=== PATIENT | female | born 1960 | race Caucasian/White ===

== ENCOUNTER 2017-06-13 14:56 | Inpatient (IN) | payer SELFPAY ==
[2017-06-13] MEDS ORDERED: Sodium Chloride 77 MEQ, Potassium Chloride 20 MEQ in Dextrose 10% in Water 1,000 ML IV SCH ×3 (16:00)
--- NOTE | 2017-06-13 16:27 | CT ---
EXAM: NONCONTRAST HEAD CT 06/13/17 HISTORY: Hypoglycemia. Diabetes patient. Unresponsive. Altered mental status. COMPARISON: None. TECHNIQUE: Noncontrast head CT is performed from skull base to skull vertex. FINDINGS: No parenchymal hemorrhage or extra-axial hematoma. No midline shift. Basilar cisterns are patent. Ag e appropriate atrophy. Cortical mancera-white matter differentiation is preserved. Ventricles and sulci are patent and symmetric. Periventricular white matter hypodensities are due to chronic small vessel ischemic changes are note d. Intact calvarium. Adequate aeration of the sinuses and mastoid air cells. IMPRESSION: 1. No acute intracranial process. 2. Chronic small vessel ischemic changes of the white matter. POS: JESUS
[2017-06-13 16:48] LABS: Bilirubin Negative (Negative); Blood, Urine Negative (Negative); Glucose, Urine (Dipstick) Negative (Negative); Ketone, Urine Negative (Negative); Nitrite Negative (Negative); Protein, Urine (Dipstick) Negative (Neg-Trace); Urobilinogen 0.2 mg/dL (0.2-1.0)
[2017-06-13 16:55] LABS: #Lymphocytes 1.2 thou/uL (1.20-3.40); #Monocytes 0.4 thou/uL (0.11-0.59); #Neutrophils 4.7 thou/uL (1.40-6.50); %Basophils 0.2 % (0.0-1.0); %Eosinophils 0.3 % (0.0-10.0); %Lymphocytes 18.7 % (21.0-51.0); Hematocrit 32.6 % (36.0-47.0); Mean Platelet Volume 6.3 fL (7.4-10.4); Red Blood Cell (RBC) Count 3.52 mill/uL (4.20-5.40); White Blood Cell (WBC) Count 6.2 thou/uL (4.8-10.8)
[2017-06-13 16:58] LABS: Amphetamine Not Detected (NotDetected); Methadone Not Detected (NotDetected); Methamphetamine Not Detected (NotDetected)
[2017-06-13 17:07] LABS: PTT 35.3 SEC (22.9-36.1); Prothrombin Time 14.4 SEC (12.0-14.7)
[2017-06-13 17:08] LABS: Acetaminophen Less than 6.0 mcg/mL (10.0-30.0); Salicylate Less than 8.0 mg/dL (15.0-30.0)
[2017-06-13 17:13] LABS: Troponin I Less than 0.010 ng/mL (< 0.028)
--- NOTE | 2017-06-13 17:16 | RAD ---
PORTABLE AP CHEST X-RAY: 06/13/2017 HISTORY: Altered mental status. COMPARISON: 06/23/2012 FINDINGS: The cardiac silhouette is magnified by projection but does appear mildly enlarged. The pulmonary va sculature is at the upper limits of normal. The lungs are clear. Vascular calcifications are seen in an ectatic thoracic aorta. There are degenerative changes seen in the spine. There is osteopeni a. IMPRESSION: Mild cardiomegaly with borderline increase in pulmonary vasculature. POS: ROXIE
[2017-06-13 17:17] LABS: ALT (SGPT) 16 U/L (8-55); AST (SGOT) 25 U/L (5-34); Alkaline Phosphatase 83 U/L (40-150); Anion Gap 12 mmol/L (10-20); BUN (Urea Nitrogen) 19 mg/dL (9.8-20.1); Bilirubin, Total 0.3 mg/dL (0.2-1.2); CK (CPK) 19 U/L (29-168); Calc. Creatinine Clearance 0 mL/min (70-130); Calcium 9.2 mg/dL (7.8-10.44); Carbon Dioxide 21 mmol/L (22-29); Chloride 106 mmol/L (98-107); Estimated GFR-MDRD 86; Globulin 4.6 g/dL (2.4-3.5); Lipase 7 U/L (8-78); Protein, Total 7.6 g/dL (6.0-8.3)
[2017-06-13] MEDS ORDERED: Ondansetron ODT 4 MG TAB SL PRN (20:42)
[2017-06-13] MEDS ORDERED: Ondansetron HCl/PF 4 MG/2 ML Vial IVP PRN (20:42)
[2017-06-13] MEDS ORDERED: Sodium Chloride 77 MEQ in Dextrose 10% in Water 1,000 ML IV SCH ×2 (20:45)
[2017-06-13] MEDS ORDERED: Dextrose 50% Abboject 50 ML SYRINGE SLOW IVP PRN (20:52)
[2017-06-13] MEDS ORDERED: HumaLOG 300 UNITS/3 ML VIAL SC PRN (20:52)
[2017-06-13] MEDS ORDERED: Dextrose 5% in Water 1,000 ML IV PRN (20:52)
[2017-06-13] MEDS ORDERED: Acetaminophen 325 MG TAB PO PRN (20:52)
[2017-06-13 21:00] VITALS: BMI 35.2
[2017-06-13 21:29] LABS: Hemoglobin A1c 5.7 % (4.0-6.0)
--- NOTE | 2017-06-13 22:36 | HP-2 ---
CODE STATUS: FULL. ATTENDING PHYSICIAN: Neal Lockett M.D. RESIDENT: Chapo Caruso MD HISTORIAN: The patient is unreliable historian, very inconsistent with the story. CHIEF COMPLAINT: Altered mental status. HISTORY OF PRESENT ILLNESS: Lala Nguyen is a 56-year-old female with past medical history of CHF , type 2 diabetes, and hypertension, who presents with altered mental status. The patient is a poor historian with a very inconsistent story. She states that she was with her family when she became unresponsive around. Actually she states that the last thing that she remembers today was feeding h er grandchildren this morning. She says no other adults are in the house just turned her grandchild aleksander and the next thing that she remembers is waking up in the ER. She was told that she had a reall y low blood sugar. ER report was less than 20 per the EMS. She denies any confusion, any postictal state, chest pain, vision changes, headache, palpitations, and incontinence. She states that she h as not taken her insulin or her pain or anxiety medications in over a month because she has not had the money to get them refilled. She also states that she takes metformin at home. She lives with o ne of her children and her children were not in the room during this interview. The patient does st ate that she had some blurry vision this morning. She also states that over the last couple days alvin epps has had stuttering of her speech and this has never been a problem for her before. In the ER, the patient received a D10 half normal saline with 20 mEq of KCl at 120 mL an hour. PAST MEDICAL HISTORY: CHF, type 2 diabetes, history of stroke, and hypertension. PAST SURGICAL HISTORY: Hysterectomy. ALLERGIES: CODEINE. MEDICATIONS: This is per the ER report who got this medication list from the daughter. 1. Metformin. 2. Apidra. 3. Tanzeum. FAMILY HISTORY: Noncontributory. SOCIAL HISTORY: Half pack per day smoker. Denies alcohol or drug use. She is a who lives wi th one of her children and takes care of her grandchildren. REVIEW OF SYSTEMS: GENERAL: Denies fevers, chills, weight, appetite, sleep changes, night sweats, or fatigue. EYES: Blurry vision this morning. Denies eye pain. ENT: Positive for nasal congestion, rhinorrhea, or sore throat. RESPIRATORY: Positive for shortness of breath. Denies cough, congestion, or exercise intolerance. CARDIOVASCULAR: Denies chest pain, palpitations, edema, PND, or orthopnea. GASTROINTESTINAL: Denies nausea, vomiting, diarrhea, constipation, abdominal pain, or GI bleeding. GENITOURINARY: Positive for polyuria which is a chronic problem for her, and denies incontinence, d ysuria, or discharge. SKIN: Denies rashes, lesions, jaundice, or itching. MUSCULOSKELETAL: Denies pain, tenderness, arthralgia, stiffness, swelling or arthritis. NEUROLOGIC: Positive for syncope. Denies weakness, seizures, or numbness. Does state that she hickman s had falls more recently over the last month. PSYCHIATRIC: Positive for anxiety and depression, controlled with medication she states. PHYSICAL EXAMINATION: VITAL SIGNS: Blood pressure 106/66, pulse 53, respiratory rate 16, her temperature 93.7, pulse ox 9 7 on room air. Current weight 113 kilograms. GENERAL: The patient is alert and oriented x4, in no acute distress, morbidly obese, and occasional ly slurring her words and stuttering, but appropriately interactive. HEENT: Pupils equal, round, react to light and accommodation. Extraocular muscles are intact. Con junctivae within normal limits. ENT: Tympanic membranes pearly mancera without erythema or bulging. Nasal mucosa and oropharynx withi n normal limits. NECK: Supple, without lymphadenopathy or thyromegaly. CARDIOVASCULAR: Regular rate and rhythm. No murmurs or gallops. Radial pulses and pedal pulses pr esent and equal bilaterally. RESPIRATORY: Normal effort, no retractions. Clear to auscultation bilaterally. SKIN: Warm and dry without cyanosis or lesions. ABDOMEN: Soft and protuberant, no tenderness to palpation. Bowel sounds x4. No masses or distenti on. EXTREMITIES: No clubbing, cyanosis or edema. MUSCULOSKELETAL: Structure and tone within normal limits. Muscle strength 5/5 in both upper extrem ities and lower extremities bilaterally. Full range of motion. [employer] Assistant Principal strength equal bilaterally 5/5 . NEUROLOGICAL: No focal deficits. Sensation within normal limits. Cranial nerves II-XII intact. PSYCHIATRIC: Appropriate. LABORATORY DATA: White blood cell count 6.2, hemoglobin 10.7, hematocrit 32.6, MCV 92.7, and platel ets 171. Sodium 135, potassium 4.0, chloride 106, bicarbonate 21, BUN 19, creatinine 0.71, glucose 86, calcium 9.2, total protein 7.6, albumin 3.0, AST 25, ALT 16, alkaline phosphatase 83, total bili rod 0.3. INR 1.1, PT 14.4, PTT 35.3. Ammonia 39, CK 19, CK-MB 0.8, troponin less than 0.01, lipa se 7, BNP 31, TSH 1.1798. UA negative. UDS positive for opiates and TCA less than 6, acetaminophen less than 10, alcohol less than 8 salicylate. IMAGING DATA: EKG showed sinus bradycardia with first degree AV block. Chest x-ray showed mild car diomegaly with borderline increased pulmonary vasculature. CT of the head, no acute intracranial pr ocess, but chronic small vessel ischemic changes. ASSESSMENT AND PLAN: 1. Lala Nguyen is a 56-year-old female who presents with altered mental status after being found down with a blood sugar of less than 20. 2. Encephalopathy, likely secondary to hypoglycemia with a possible toxic component. UDS positive for TCA and opioids. The patient's daughter states she is on short-acting insulin and Apidra. It i s likely that the patient took too much insulin; however, she denies taking any insulin within the l ast month, but she is unreliable historian. We will check a hemoglobin A1c, Accu-Cheks q.2 h. initi ally, then a.c. and at bedtime after that, mild sliding scale insulin with hypoglycemia protocol att empt to retrieve medication list from family. Bedside swallow study. Admit to tele inpatient, morn ing BMP, CBC, mag and phos. Start metformin 500 mg b.i.d. 3. Possible substance abuse. Speak to family about medication use. The patient denies use of pain meds or anxiety meds in the last month. UDS positive for TCA and opioids. 4. Sinus bradycardia with first-degree AV block. Repeat EKG in the morning tele, continuous cardia c monitoring. 5. Hypertension. Monitor vitals, tele. 6. Type 2 diabetes mellitus, mild sliding scale insulin q.2 Accu-Cheks initially, a.c. and at bedti me after that. Continue home metformin and get home medication list. 7. Normocytic anemia. MCV of 92.7, hemoglobin of 10.7. Check B12 and folate. 8. Code status: FULL. 9. Diet: Consistent carbohydrates 1800 kilo calories. 10. Activity: Ambulate with assist and walking program. DISPOSITION LENGTH OF HOSPITAL STAY: Two days. Symptomatic medications will be provided. History and physical exam as well as management discussed with Dr. Lockett.
[2017-06-13] MEDS ORDERED: Melatonin 3 MG TAB PO PRN (22:40)
[2017-06-13] MEDS ORDERED: rOPINIRole HCl 0.25 MG TAB PO SCH (22:45)
[2017-06-14] MEDS ORDERED: Pramipexole Di-HCl 0.125 MG TAB PO SCH (01:00)
[2017-06-14 05:28] LABS: #Eosinphils 0.1 thou/uL (0.0-0.7); #Lymphocytes 1.9 thou/uL (1.20-3.40); #Monocytes 0.5 thou/uL (0.11-0.59); #Neutrophils 4.7 thou/uL (1.40-6.50); %Basophils 0.5 % (0.0-1.0); %Eosinophils 1.1 % (0.0-10.0); %Lymphocytes 26.6 % (21.0-51.0); %Monocytes 6.8 % (0.0-10.0); Mean Platelet Volume 6.9 fL (7.4-10.4); Red Blood Cell (RBC) Count 3.43 mill/uL (4.20-5.40); White Blood Cell (WBC) Count 7.2 thou/uL (4.8-10.8)
[2017-06-14 05:52] LABS: Anion Gap 10 mmol/L (10-20); BUN (Urea Nitrogen) 16 mg/dL (9.8-20.1); Calc. Creatinine Clearance 131 mL/min (70-130); Calcium 9.2 mg/dL (7.8-10.44); Carbon Dioxide 25 mmol/L (22-29); Chloride 103 mmol/L (98-107); Estimated GFR-MDRD 87
--- NOTE | 2017-06-14 07:41 | PDOC.FM ---
- Subjective Subjective: Patient reports that she is back at her baseline today. She was able to give me a little more history. She reports that she takes 20 Units every morning of some type of insulin (she did not know the name), and she took it as usual yesterday but then she does not remember eating at all yesterday. She is asymptomatic today with no complaints. - Objective MAR Reviewed: Yes Vital Signs & Weight: Vital Signs (12 hours) Temp Pulse Resp BP Pulse Ox 06/14/17 03:58 97.6 F 58 L 18 106/64 06/13/17 23:52 97.6 F 63 18 119/57 L 95 06/13/17 23:45 95 06/13/17 22:56 96 06/13/17 21:50 97.6 F 66 18 97 06/13/17 21:46 97.6 F 66 18 130/63 97 06/13/17 21:01 97.8 F 61 14 143/68 H 97 Weight Weight 90.22 kg Result Diagrams: 06/14/17 04:11 06/14/17 04:11 Phys Exam - Physical Examination Constitutional: NAD HEENT: moist MMs Respiratory: no wheezing, no rales, no rhonchi, clear to auscultation bilateral Cardiovascular: RRR, no significant murmur, no rub, gallop Gastrointestinal: soft, non-tender, positive bowel sounds Musculoskeletal: no edema, pulses present Neurological: non-focal, moves all 4 limbs Psychiatric: normal affect, A&O x 3 Dx/Plan (1) Encephalopathy acute Code(s): G93.40 - ENCEPHALOPATHY, UNSPECIFIED Status: Acute Plan: Patient was encephalopathic on admission likely 2/2 severe hypoglycemia per ER reports her glucose was less than 20 initially Patient improved s/p dextrose, now at baseline with normalized blood sugars -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 of eating after giving herself insulin -Get medication list from daughter (2) Hypoglycemia due to insulin Code(s): E16.0 - DRUG-INDUCED HYPOGLYCEMIA WITHOUT COMA; T38.3X5A - ADVERSE EFFECT OF INSULIN AND ORAL HYPOGLYCEMIC DRUGS, INIT Status: Acute Plan: Per ER reports her glucose was less than 20 initially Patient improved s/p dextrose, now at baseline with normalized blood sugars -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 She is asymptomatic from this -Continue to monitor on tele (5) Sinus bradycardia Code(s): R00.1 - BRADYCARDIA, UNSPECIFIED Status: Acute Plan: Patient had sinus bradycardia with 1st degree AV block, she has been told this in the past and does not have a insulator technician. She is asymptomatic from this -Continue to monitor on tele (6) Normocytic anemia Code(s): D64.9 - ANEMIA, UNSPECIFIED Status: Acute Plan: Patient has normocytic anemia, B12 and folate within normal limits This is likely anemia of chronic disease -will continue to monitor
[2017-06-14 16:13] VITALS: BP 112/55; TEMP 98.3
[2017-06-14] MEDS ORDERED: rOPINIRole HCl 0.25 MG TAB PO SCH (21:00)
--- NOTE | 2017-06-15 07:04 | ADD-HP ---
ADDENDUM Please see the note from Dr. Caruso for which I concur. The patient was seen, evaluated, and examine d and discussed with the residents by bedside. Basically, this is a 56-year-old, who was found to h ave hypoglycemia, severe. She was unable to give much history and so we are waiting on home medicat ions, but it does sound like that she is on home insulin and may be gave too much. Hemoglobin A1c i s really low and fell probably does not need insulin in the big picture. Past medical history, past surgical history, allergy history, medications, social history, and famil y history, all per the resident's history and physical form which I agree. PHYSICAL EXAMINATION: GENERAL: On exam, in no apparent distress, fairly normal affect, otherwise seems completely normal and appropriate. ENT: Normal. CHEST: Clear. CARDIOVASCULAR: Regular rhythm. ABDOMEN: Benign. NEUROLOGIC: Normal. LABORATORY DATA: Her sugar is back to normal. ASSESSMENT AND PLAN: 1. Hypoglycemia, likely dangerous treatment of her diabetes, on insulin, which probably does not ne ed it. 2. Altered mental status, now better. 3. Possible substance abuse. 4. Mild anemia. Plan would be to work up all these issues as an outpatient, but certainly would not put her on insul in, but she can go home, otherwise, now that her sugars are doing fine.
--- NOTE | 2017-06-16 01:18 | DIS-2 ---
DATE OF ADMISSION: 06/13/2017 DATE OF DISCHARGE: 06/14/2017 ADMITTING RESIDENT: Dr. Chapo Caruso DISCHARGE RESIDENT: Dr. Kacie Mukherjee ADMITTING ATTENDING: Dr. Neal Lockett DISCHARGE ATTENDING: Dr. Neal Lockett CONSULTATIONS: None. PROCEDURES: None. PRIMARY DIAGNOSES: 1. Acute encephalopathy. 2. Hypoglycemia due to insulin. 3. First-degree atrioventricular block. 4. Sinus bradycardia. SECONDARY DIAGNOSES: 1. Hypertension. 2. Type 2 diabetes. 3. Normocytic anemia. DISCHARGE MEDICATIONS: 1. Metformin 500 mg p.o. b.i.d. with meals. The patient did not know the rest of her medications a nd we were unable to get a hold of her medication list. DISCONTINUED MEDICATIONS: 1. Insulin. HISTORY OF PRESENT ILLNESS AND HOSPITAL COURSE: This is a 56-year-old female who presented to the [facility] because of altered mental status secondary to a glucose that was reported by EMS to be less than 2 0. The patient reports that she took her usual dose of insulin in the morning, but then never ate. The patient is unsure what insulin she was on whether it was short acting or long acting. After th e patient's blood sugar was elevated, her encephalopathy and altered mental status improved. She hickman d a head CT that showed no acute intracranial process just chronic small vessel ischemic changes of the white matter and a chest x-ray that showed mild cardiomegaly with borderline increase in pulmona ry vasculature. Her lab work showed a normocytic anemia with hemoglobin around 10.7 and she had opi ates and tricyclics detected on her UDS. After the patient's blood sugar had normalized and she was no longer encephalopathic. Also her hemoglobin A1c was 5.7. After normalized, we counseled the elaina cage to no longer take her insulin at all and to follow up with her primary care physician in [facility] to determine whether insulin is still necessary. If so, patient will need to be counseled f christy on proper insulin use, but for now the patient will be safe just being on metformin. DISPOSITION: Stable. DISCHARGE INSTRUCTIONS: 1. Location: Home. 2. Diet: Consistent carb. 3. Activity: As tolerated. 4. Follow up with PCP within 7 days.
== END 2017-06-14 18:45 | disposition home or self-care (01) | DRG 637 ==
LOC: ERS 14:56 → OBSVTOIN 20:39 → 2SW 20:39 → 2NO 21:49
PROVIDERS: ADMIT Family Medicine; ATTEND Family Medicine
DX: E11.649 Type 2 diabetes mellitus with hypoglycemia without coma (principal); G93.41 Metabolic encephalopathy; T38.3X5A Adverse effect of insulin and oral hypoglycemic [antidiabetic] drugs, initial encounter; R00.1 Bradycardia, unspecified; Z68.35 Body mass index [BMI] 35.0-35.9, adult; I44.0 Atrioventricular block, first degree; I11.0 Hypertensive heart disease with heart failure; Z86.73 Personal history of transient ischemic attack (TIA), and cerebral infarction without residual deficits; E03.9 Hypothyroidism, unspecified; R68.0 Hypothermia, not associated with low environmental temperature; E66.9 Obesity, unspecified; D63.8 Anemia in other chronic diseases classified elsewhere
CPT/HCPCS: 36415; 36416; 51701; 70450; 71010; 80048; 80053; 80306; 80307; 81003; 82140; 82550; 82553; 82607; 82746; 83036; 83690; 83735; 83880; 84100; 84443; 84484; 85025; 85610; 85730; 93005; 93010; 96360; 96361; A4353; J3480

== ENCOUNTER 2018-01-05 18:46 | Observation (INO) | payer OTHER, SELFPAY ==
--- NOTE | 2018-01-05 20:58 | ULT ---
RIGHT UPPER QUADRANT ULTRASOUND: INDICATIONS: Right upper quadrant pain for two weeks with nausea and vomiting. COMPARISON: Prior CT of the abdomen and pelvis, dated 01/05/2018 at 4:24 p.m. FINDINGS: There is a lobulated contour to the liver, suspicious for cirrhosis. There is gallbladder distention without intraluminal stones. There is prominence of the common bile duct, measuring up to 8 mm. No sonographic Dasilva sign is reported. The visualized aspects of the pancreas are unremarkable. The right kidney measures 11 cm in length. No focal renal lesion or hydronephrosis is evident. IMPRESSION: 1. Moderate to prominent distention of the gallbladder without evidence of intraluminal stones. The re is no overt ultrasound evidence to suggest the presence of acute cholecystitis. 2. Nonspecific prominence of the common bile duct. No lawrence intrahepatic biliary ductal dilatation is evident. MRCP may be helpful for further evaluation. 3. Cirrhotic morphology of the liver. POS: JESUS
[2018-01-05] MEDS ORDERED: Fentanyl 100 MCG/2 ML VIAL ONE (21:39)
[2018-01-05] MEDS ORDERED: Fentanyl 100 MCG/2 ML VIAL SLOW IVP PRN (23:32)
[2018-01-05] MEDS ORDERED: Ondansetron HCl/PF 4 MG/2 ML Vial IVP PRN (23:33)
[2018-01-05] MEDS ORDERED: Ondansetron ODT 4 MG TAB SL PRN (23:33)
[2018-01-05] MEDS ORDERED: Lactated Ringer's 1,000 ML IV SCH (23:45)
[2018-01-05 23:53] VITALS: BMI 30.1
[2018-01-06] MEDS ORDERED: HumaLOG 300 UNITS/3 ML VIAL SC PRN (00:36)
[2018-01-06] MEDS ORDERED: Dextrose 50% Abboject 50 ML SYRINGE SLOW IVP PRN (00:36)
[2018-01-06] MEDS ORDERED: HYDROcodone/Acetaminophen 5/325 mg Tablet PO PRN (00:36)
[2018-01-06] MEDS ORDERED: Ondansetron HCl/PF 4 MG/2 ML Vial IVP PRN (00:36)
[2018-01-06] MEDS ORDERED: Acetaminophen 325 MG TAB PO PRN (00:36)
[2018-01-06] MEDS ORDERED: Dextrose 5% in Water 1,000 ML IV PRN (00:36)
[2018-01-06] MEDS ORDERED: metroNIDAZOLE 500 MG in Premix Bag 1 BAG IVPB SCH (00:45)
[2018-01-06] MEDS: Sodium Chloride 0.9% 1,000 ML IV SCH ×3 (01:47→16:57)
[2018-01-06] MEDS: Morphine 4 MG/ML VIAL SLOW IVP PRN ×5 (01:49→20:36)
[2018-01-06 05:11] LABS: #Eosinphils 0.2 thou/uL (0.0-0.7); #Lymphocytes 1.7 thou/uL (1.20-3.40); #Monocytes 0.5 thou/uL (0.11-0.59); #Neutrophils 2.1 thou/uL (1.40-6.50); %Basophils 0.2 % (0.0-1.0); %Lymphocytes 37.2 % (21.0-51.0); %Monocytes 10.7 % (0.0-10.0); Hemoglobin 11.7 g/dL (12.0-16.0); Mean Corpuscular HGB CONC 33.9 g/dL (32.0-36.0); Mean Corpuscular Hemoglobin 30.7 pg (27.0-31.0); Mean Corpuscular Volume 90.5 fl (81.0-99.0); Mean Platelet Volume 6.4 fL (7.4-10.4); Platelet Count 155 thou/uL (130-400); RBC Distribution Width 12.7 % (11.5-14.5); Red Blood Cell (RBC) Count 3.82 mill/uL (4.20-5.40); White Blood Cell (WBC) Count 4.4 thou/uL (4.8-10.8)
[2018-01-06 05:15] LABS: Hemoglobin A1c 8.5 % (4.0-6.0)
[2018-01-06] MEDS: metroNIDAZOLE 500 MG in Premix Bag 1 BAG IVPB SCH ×4 (05:32→23:57)
[2018-01-06 05:45] LABS: ALT (SGPT) 11 U/L (8-55); AST (SGOT) 18 U/L (5-34); Albumin 3.1 g/dL (3.5-5.0); Alkaline Phosphatase 86 U/L (40-150); Anion Gap 10 mmol/L (10-20); BUN (Urea Nitrogen) 8 mg/dL (9.8-20.1); Bilirubin, Total 0.4 mg/dL (0.2-1.2); Calc. Creatinine Clearance 114 mL/min (70-130); Calcium 9.1 mg/dL (7.8-10.44); Carbon Dioxide 23 mmol/L (22-29); Chloride 105 mmol/L (98-107); Estimated GFR-MDRD 90; Globulin 3.7 g/dL (2.4-3.5); Glucose 156 mg/dL (70-105); Magnesium 1.9 mg/dL (1.6-2.6); Potassium 3.8 mmol/L (3.5-5.1); Protein, Total 6.8 g/dL (6.0-8.3); Sodium 134 mmol/L (136-145)
--- NOTE | 2018-01-06 05:46 | HP ---
PRIMARY CARE PHYSICIAN: Dr. Mayda San DATE OF ADMISSION: 01/05/2018 TIME OF SERVICE: 2350 CHIEF COMPLAINT: Abdominal pain. HISTORY OF PRESENT ILLNESS: Ms. Nguyen is a 57-year-old female with history of CHF, diabetes, hyper tension, obesity who presented to the emergency department initially on 12/28/2017. She was having b ilateral lower quadrant abdominal pain that was crampy in nature. At that time, she had a CT scan th at showed a splenic flexure inflammation. She was diagnosed with diverticulitis and treated with a 1 0-day course of Cipro and Flagyl, which she is still currently taking. Since discharge from the ER on 12/28/2017, she has had increasing symptoms so went back to the [facility] ER due to the increased pain. CT scan showed gallbladder distention and she was subsequently transferred here for further workup. On arrival, her labs remained normal, she is afebrile. She describes having increased cramping and p ain with eating. She said it is mostly in the left lower quadrant more than anywhere else, but has b een in the right lower quadrant some, too. She has had nausea and vomiting only x2 since this starte d and she is supposed to be having a consult with a washer carcass for a colonoscopy on 8. She describes hematochezia for the last 3-4 months, but stopped about a week ago. No fevers or c hills. No syncope or presyncope. PAST MEDICAL HISTORY: 1. Congestive heart failure, unknown type. She had her last echocardiogram about 2 years ago over [facility]. 2. Diabetes mellitus type 2, non-insulin dependent. 3. Hypertension. 4. Obesity. PAST SURGICAL HISTORY: 1. Hysterectomy in 1984. 2. Bladder suspension, and a rectal lift a long time ago. HOME MEDICATIONS: 1. Metformin 500 mg p.o. b.i.d. 2. Gabapentin 300 mg p.o. b.i.d. 3. Lisinopril/HCTZ 07/03.5 one p.o. daily. ALLERGIES: CODEINE causes a rash. FAMILY HISTORY: Negative for clotting or bleeding disorder, no immune dysfunction, no premature kymberly nary disease. SOCIAL HISTORY: Significant tobacco, about 6 cigarettes per day. No alcohol, no IV drug use. REVIEW OF SYSTEMS: A 10-point review of systems was performed and is negative for all systems except as stated as per HPI. PHYSICAL EXAMINATION: VITAL SIGNS: Temperature 98.3, pulse 78, blood pressure 141/83, respiratory rate 18, satting 98% on room air. GENERAL: The patient is awake. She is alert. She is oriented x3. She is a well-developed, obese w klaudia female, appears to be in no distress, but is groaning periodically due to abdominal cramping. HEENT: She is normocephalic and atraumatic. Pupils are equal, round, reactive to light bilaterally, mucous membranes are moist. She has no visible lesions. No thrush. NECK: Supple. She has no lymphadenopathy, JVD or thyromegaly. She has normal carotid upstrokes. I do not appreciate a bruit. LUNGS: Clear to auscultation bilaterally, no wheezes, no rales or rhonchi. She has good air movemen t. Symmetrical chest excursion. No prolonged expiratory phase. CARDIOVASCULAR: She has normal cardiac and regular. Normal S1 and S2. I do not appreciate murmurs. ABDOMEN: Obese. She has diffuse tenderness primarily in the left lower quadrant and right lower ricardo drant. She has no Dasilva sign. She has no rebound, rigidity or guarding. She had hyperactive bowel sounds present in all 4 quadrants. EXTREMITIES: Show no cyanosis, no clubbing. She has trace pedal edema. SKIN: Warm, moist, and well perfused. There are no rashes or lesions. MUSCULOSKELETAL: Normal to inspection. Large joints appear normal. There is no evidence of inflamm ation. No palpable effusions. NEUROLOGIC: Cranial nerves II-XII are grossly intact, she has 5/5 strength in all 4 extremities. Sh e has normal speech pattern, there are no focal deficits. LABORATORY DATA: Sodium 137, potassium 3.6, chloride 107, bicarb 21, BUN 8, creatinine 0.73, glucose of 210. Liver functions completely within normal limits. Her albumin is 3.0, which is slightly lower than pr eviously tested. CBC showed a white count of 6.1, hemoglobin 12.5, hematocrit 36.2, platelet count 173,000. Urinalysis is within normal limits. CK-MB is normal at 1.4, troponin I is undetectable less than 0.[address] scan on 12/28/2017 showed the gallbladder, showed inflammation of the splenic flexure and gallblad theresa was 2.8 x 5.1 cm, today's showed the gallbladder to be distended to almost twice the width at 5 c m by almost twice the length at 11 cm. Splenic flexure, there does appear to be inflammation with an apple core mass-like lesion. ASSESSMENT AND PLAN: 1. Intractable abdominal pain: Unclear of the source. Certainly could be diverticulitis and crampi ness. This does almost sound functional. We will start Bentyl 10 mg q.i.d. p.r.n. spasm and see how she responds. 2. History of congestive heart failure, type unknown. She does not have any acute exacerbation at p resent. 3. Diabetes mellitus type 2, non-insulin dependent. Hold metformin, use sliding scale insulin. 4. Hypertension, essential. Blood pressure is slightly on the higher end. We will hold her hyperte nsives for now. 5. Obesity. Will place the patient in observation on medical floor. We will ask GI to evaluate. We will get a M LEVELER HELPER ordered as this certainly could be gallbladder dysfunction, though her pain is in other areas. Adrian Figueroa was contacted by the Emergency Department, he does not feel any surgical emergency at this point.
[2018-01-06] MEDS: Famotidine 20 MG TAB PO SCH ×3 (09:58→18:02)
--- NOTE | 2018-01-06 10:52 | MRI ---
MRI ABDOMEN WITHOUT CONTRAST: HISTORY: Abdominal pain. COMPARISON: CT abdomen and pelvis from 01/05/2018 and ultrasound from 01/05/2018. FINDINGS: The hepatic contour is mildly nodular. There is no intrahepatic or extrahepatic biliary dilatation. The common bile duct internal lumen measures just over 6 mm. No intraluminal filling defect. No ch olelithiasis. Gallbladder wall thickness is normal. The distal common bile duct is normal. No dilatation of the pancreatic duct. The spleen is enlarged, measuring 13 cm. No hydronephrosis. No retroperitoneal adenopathy. Aortic size is nonaneurysmal. There is circumferential disk bulge at L3-L4, L4-L5, and L5-S1, causing some spinal canal and neural foraminal narrowing. No significant hepatic steatosis. There is some sludge within the gallbladder. IMPRESSION: 1. Dilated gallbladder without wall thickening, cholelithiasis, or pericholecystic fluid. Recommend correlation with the history of poor gallbladder ejection fraction. A non-emergent nuclear medicine HIDA scan with ejection fraction may be beneficial in this patient, if clinically warranted. At thi s time, there is no evidence of choledocholithiasis or cholelithiasis. 2. Nodular hepatic contour with splenomegaly and early portal hypertension. POS: [facility]
--- NOTE | 2018-01-06 13:14 | PDOC.PN ---
- Subjective Encounter Start Date: 01/06/18 Encounter Start Time: 13:18 Subjective: No new complaints. Still has some abdominal pain -: No acute events overnight. - Objective Resuscitation Status: Resuscitation Status FULL:Full Resuscitation Vital Signs & Weight: Vital Signs (12 hours) Temp Pulse Resp BP Pulse Ox 01/06/18 11:49 98.2 F 69 16 144/69 H 95 01/06/18 08:00 98.1 F 67 16 01/06/18 07:44 98.1 F 67 16 109/72 97 01/06/18 04:00 98.0 F 73 20 113/71 99 Weight Weight 170 lb I&O: 01/05/18 01/06/18 01/07/18 06:59 06:59 06:59 Intake Total 252 Balance 252 Result Diagrams: 01/06/18 04:58 01/06/18 04:58 Additional Labs: Accuchecks 01/06/18 01/06/18 11:37 05:37 POC Glucose 108 137 H Phys Exam - Physical Examination Constitutional: NAD HEENT: PERRLA, moist MMs, sclera anicteric Neck: no JVD, supple, full ROM Respiratory: no wheezing, no rales, no rhonchi, clear to auscultation bilateral Cardiovascular: RRR, no significant murmur, no rub Gastrointestinal: soft, no distention, positive bowel sounds Mild RUQ tenderness. Musculoskeletal: no edema, pulses present Neurological: non-focal, normal sensation Psychiatric: normal affect, A&O x 3 Skin: no rash, normal turgor Dx/Plan (1) Intractable abdominal pain Code(s): R10.9 - UNSPECIFIED ABDOMINAL PAIN Status: Acute Comment: pain better controlled. MRI showed gall bladder thickening - cholelithiasis or pericholecystic fluid. (2) HTN (hypertension) Code(s): I10 - ESSENTIAL (PRIMARY) HYPERTENSION Status: Chronic Qualifiers: Hypertension type: essential hypertension Qualified Code(s): I10 - Essential (primary) hypertension Comment: At goal. Resume home medications. (3) Diabetes mellitus type 2 in obese Code(s): E11.69 - TYPE 2 DIABETES MELLITUS WITH OTHER SPECIFIED COMPLICATION; E66.9 - OBESITY, UNSPECIFIED Status: Chronic Comment: Fairly well controlled. (4) Normocytic anemia Code(s): D64.9 - ANEMIA, UNSPECIFIED Status: Chronic - Plan cont current plan of care, DVT proph w/heparin Continue pain control -: f/u GI recs -: Monitor blood pressure -: Daily LFTs * . Review of Systems - Medications/Allergies Allergies/Adverse Reactions: Allergies Allergy/AdvReac Type Severity Reaction Status Date / Time codeine Allergy Verified 06/13/17 21:59 Medications: Current Medications Acetaminophen (Tylenol) 650 mg PO Q4H PRN PRN Reason: Headache/Fever or Pain Hydrocodone Bitart/Acetaminophen ([place] 10/325) 1 tab PO Q4H PRN PRN Reason: Severe Pain (7-10) Hydrocodone Bitart/Acetaminophen ([place] 5/325) 1 tab PO Q4H PRN PRN Reason: Moderate Pain (4-6) Dextrose/Water (Dextrose 50%) 25 gm SLOW IVP PRN PRN PRN Reason: Hypoglycemia Dicyclomine HCl (Bentyl) 10 mg IM QID PRN PRN Reason: GI Cramping Dicyclomine HCl (Bentyl) 10 mg PO QID PRN PRN Reason: GI Cramping Famotidine (Pepcid) 20 mg PO BID [facility] Last Admin: 01/06/18 09:58 Dose: 20 mg Glucagon (Glucagon) 1 mg IM PRN PRN PRN Reason: Hypoglycemia Dextrose/Water (D5w) 1,000 mls @ 0 mls/hr IV .Q0M PRN; As Directed PRN Reason: Hypoglycemia Levofloxacin 750 mg/ Device 150 mls @ 100 mls/hr IVPB Q24HR [facility] Last Admin: 01/06/18 01:52 Dose: 150 mls Metronidazole 500 mg/ Device 100 mls @ 100 mls/hr IVPB Q6HR [facility] Last Admin: 01/06/18 11:00 Dose: 100 mls Sodium Chloride (Normal Saline 0.9%) 1,000 mls @ 100 mls/hr IV .Q10H [facility] Last Admin: 01/06/18 09:59 Dose: Not Given Insulin Human Lispro (Humalog) 0 units SC .MILD SLIDING SCALE PRN PRN Reason: Mild Correctional Scale Morphine Sulfate (Morphine) 2 mg SLOW IVP Q4H PRN PRN Reason: Breakthrough Pain Last Admin: 01/06/18 12:02 Dose: 2 mg Ondansetron HCl (Zofran Odt) 4 mg PO Q6H PRN PRN Reason: Nausea/Vomiting Ondansetron HCl (Zofran) 4 mg IVP Q6H PRN PRN Reason: Nausea/Vomiting
[2018-01-06] MEDS ORDERED: Methocarbamol 500 MG TAB PO PRN (13:39)
[2018-01-06] MEDS: Heparin 5,000 UNITS/ML VIAL SC SCH ×4 (14:13→20:17)
--- NOTE | 2018-01-06 15:59 | CON ---
DATE OF CONSULTATION: 01/06/2018 CONSULTING PHYSICIAN: Dr. Duc Schumacher. CHIEF COMPLAINT: Abdominal pain. HISTORY OF PRESENT ILLNESS: Patient is a 57-year-old white female. She noted a 2-month history of b lood in her stool and she saw her primary care physician a couple of weeks ago, who scheduled her for a colonoscopy consultation to be done later this month. She developed worsening abdominal pain, for which she presented to the [place] [facility] on 12/28/2017. She had laboratory studies pe rformed revealing an essentially normal CBC and chemistry profile. Her liver function tests were ent irely normal. Her glucose level was elevated at 368 at that time and she had minor electrolyte distu rbance. CT scan at that time revealed what was felt to potentially be an area of diverticulitis in t he distal transverse colon at the splenic flexure. This is felt to be an inflammatory process, poten tiajoeyy related to diverticulitis. Patient was given a prescription for Cipro and Flagyl. She return ed to the emergency room last night complaining of persistent and perhaps worsening diarrhea, abdomin al bloating, abdominal pain. She had noted blood in her bowel movements, but this has been much less recently. She notes that she had been having 4-6 bowel movements per day and it has been diarrhea n ow for the past 10 days. In [place] last night, laboratory studies and a repeat CT scan were obtained. The CT scan revea led a persistent area of inflammation and thickening near the splenic flexure. There was noted to be gallbladder distention and potentially common duct dilatation up to 8 mm. Her liver function tests; however, were entirely normal once again. Her CBC was entirely normal once again with a white blood cell count of 6 and a normal differential and hemoglobin of 12.5. Because of the gallbladder distention noted on CT scan, gallbladder ultrasound was recommended. She had to be transferred to this facility for this procedure. This revealed no evidence of gallbladder wall thickening or cholelithiasis. There was a suggestion of obtaining an MRCP to further evaluate t he duct given the potential dilatation. Although the patient was not having any focal right upper qu adrant or epigastric discomfort and although her liver function tests were entirely normal, an MRCP w as obtained at 1:00 this morning. This was unremarkable except for realizing that there was a disten ded gallbladder and a common bile duct of about 8 mm in diameter. There was no mass or stone that wa s recognized. The patient was admitted by the Hospitalist Service and Gastroenterology was consulted , as am I. PAST MEDICAL HISTORY: 1. Diabetes mellitus. 2. Hypertension. 3. Moderate obesity. PAST SURGICAL HISTORY: 1. Hysterectomy in 1984. 2. At some point, she had a laparoscopic bladder lift, and she states that she had a rectal left (al though I am not certain what this means). HOME MEDICATIONS: Metformin, gabapentin (for diabetic neuropathy), and lisinopril/hydrochlorothiazid e. ALLERGIES: CODEINE. PERSONAL/SOCIAL HISTORY: She is for the past 3 years. She has 3 children, lives with one of her sons. She does not drink significantly. She smokes about a half-pack of cigarettes per day. REVIEW OF SYSTEMS: Ten-system review is obtained and is otherwise negative. PRIMARY CARE PHYSICIAN: Dr. Mayda San in [place]. PHYSICAL EXAMINATION: VITAL SIGNS: Temperature is 98.2, pulse 68, blood pressure 135/83. She has been afebrile with cleve l vital signs since admission. GENERAL: She is a well-developed, well-nourished, pleasant white female, resting in bed on the medic w[facility] floor. She is alert and oriented x3. Her sister is present at bedside. HEAD, EARS, EYES, NOSE, AND THROAT: Unremarkable. NECK: Supple. LUNGS: Clear to auscultation anteriorly. CARDIAC: Regular rate and rhythm without murmur. ABDOMEN: Soft, without distention. She has normoactive bowel sounds. When she is distracted, there is no guarding or evidence of discomfort with deep examination in all 4 quadrants. As soon as she i s not distracted, she begins to wince with any examination of the abdomen. There is no focal tendern ess in any quadrant and there is no definite palpable mass. RECTAL EXAM: Deferred at this time. EXTREMITIES: Unremarkable. ASSESSMENT: The patient was admitted for evaluation of abdominal discomfort and diarrhea. There is an abnormal finding on the CT scan, for which colonoscopy is appropriate. I am not certain if this i s an area of ischemic colitis or neoplasm. It does not appear typical of diverticulitis. I agree wi th Gastroenterology consultation and colonoscopy. In regard to her gallbladder, the finding of a distended gallbladder and possibly dilated common bile duct are inconsequential. The MRCP was likely unnecessary and shows no reason for any biliary probl ems. This would have been expected given the entirely normal liver function tests. I will give her clear liquid diet for now, and she will require bowel prep this evening. She will be seen by Dr. Mohr later and I suspect he will recommend a colonoscopy tomorrow. I will follow pend ing colonoscopy results.
[2018-01-06] MEDS: metFORMIN 500 MG TAB PO SCH (16:51)
[2018-01-06] MEDS: Dicyclomine 10 MG CAP PO PRN ×2 (17:52→23:57)
[2018-01-06] MEDS ORDERED: GoLYTELY 4,000 ml Bottle PO SCH (18:00)
[2018-01-06] MEDS: Pramipexole Di-HCl 0.25 MG TAB PO SCH (20:34)
--- NOTE | 2018-01-06 21:46 | CON ---
DATE OF CONSULTATION: 01/06/2018 HISTORY OF PRESENT ILLNESS: Ms. Nguyen is a 57-year-old female who was admitted to the hospital for abdominal pain. Apparently, she had gone to the emergency room in [place] back on the his month. She reports at that time it was for vague abdominal tenderness and one episode of stool i ncontinence. She actually went to the ER because when she lived in [place] last year, she had an epis ode of C. diff and was concerned may have recurred. She actually does not know why she had C. diff a nd denies having had antibiotics at that time and took antibiotics and had resolved with 1 course of treatment. In any event, when she was in the hospital there on 12/28/2017, she had a CAT scan that s howed abnormality in the splenic flexure which was felt to be inflammation with possibly neoplasia. She had no complaints of fever at that time and did note she had been having some blood in the stool at times. Labs then notable for a white count of 6.6, hemoglobin 13, and platelet count of 148. She had a sed rate of 85. She had stool then notable for negative culture, negative Campylobacter, nega tive Shiga toxins, positive lactoferrin, and negative C. diff. At that time, she was given Levaquin and Flagyl for possible diverticulitis. She represented to the emergency room on 01/05/2018 with complaints of abdominal pain again, generali zed, sometimes went to right lower abdomen and was associated with some distention and gas. She is a lso still having some irregular stools, occasionally with bright red blood. She denied any fever, ch ills, dysuria, frequency, or urgency. She reports to me she has had some nausea. Diarrhea was not v viviana much of an issue. In the emergency room, she received morphine, Zofran, and some IV fluids. She had another CAT scan performed, on that study showed a somewhat distended gallbladder, 11 cm, mildly prominent common bile duct of 0.8 cm. Ulcer was noted in her liver was nodular suggestive of cirrho sis. An ultrasound was then done that showed a prominent gallbladder, no free fluid, nonspecific pro minence of the common bile duct, no intrahepatic ductal dilatation and cirrhotic morphology of the li miky and MRCP was recommended by Radiology. Lab studies at time of dictation, she had a white count w as normal at 6.1, hemoglobin was 12.5, and platelet count was 173. Liver function tests were normal both on 01/05/2018 and 01/06/2018. Lipase was 21. B12 was 290 in 2017. The patient was transferred here for MRCP as MRCP there was not available. That was performed last night and showed a dilated g allbladder without gallbladder wall thickening, cholelithiasis, pericholecystic fluid, nodular liver with splenomegaly and early portal hypertension. Common bile duct was felt to be normal. In talking with the patient, she states she has had no postprandial abdominal pain. She has had naus ea at times. Denies any specific right upper quadrant pain. She denies any significant weight loss. She denies any fever or chills. She had last had bleeding about 2 months ago. PAST MEDICAL HISTORY: To me she states she only has diabetes, hypertension. She noted to [facility] on admission that she has had some heart failure before in [place]. Also, she told me she had a pr ior history of Clostridium difficile, restless legs. PAST SURGICAL HISTORY: Hysterectomy and bladder suspension x2. MEDICATIONS AT HOME: Metformin, gabapentin, lisinopril/HCTZ. ALLERGIES: CODEINE. FAMILY HISTORY: Negative for colorectal cancer or liver disease. SOCIAL HISTORY: She smokes about 6 cigarettes per day. Denies alcohol. Denies current or past drug use. REVIEW OF SYSTEMS: The patient denies any history of heavy alcohol use, prior hepatitis or known fam becca history of liver disease. PRESENT MEDICATIONS: Tylenol, [place], D5W, Bentyl, Pepcid, Neurontin, glucagon, Prinzide, heparin, Hu malog, Levaquin, Glucophage, metronidazole, Zofran, normal saline at 100. PHYSICAL EXAMINATION: GENERAL: The patient is resting comfortably in bed. She is in no distress or urgency. She states s he is hungry. VITAL SIGNS: She has been afebrile since admission. Her T-max 98.2, T-current 98.2, pulse 68, blood pressure 135/83. HEENT: Oropharynx without lesions. NECK: Supple without adenopathy. LUNGS: Clear. HEART: Regular rate and rhythm without clicks or murmurs. ABDOMEN: Soft, slightly protuberant. There is no rebound or guarding. She has vague tenderness at times, but this is nonfocal and this is not reproducible. There is no palpable hepatosplenomegaly. She is mildly overweight. Protuberant abdomen. There is no shifting, dullness or fluid waves. EXTREMITIES: No clubbing, cyanosis or edema. SKIN: Normal for some mild palmar erythema. LABORATORY STUDIES: As per HPI. Her bilirubin is 0.4, AST and ALT are 18 and 11, alkaline phosphata se is 86. Albumin is 3.1, total protein is 6.8, bilirubin 0.4. Hematology here, white count 4.4, he moglobin 11.7, and platelet count 155. ASSESSMENT: This is a 57-year-old who has had change in bowel function that was starting about a mon or two ago with intermittent rectal bleeding and some vague bloating and gas, mild change in bowel s. More recently, she went to the emergency room on the of this month and then again yesterday f or worsening abdominal pain. The first time she went was for fecal incontinence. She was worried ab out Clostridium difficile, although stool studies were negative at that time. The second time, she w ent in was more for abdominal discomfort and pain. She had some vague findings around the spleen on her CAT scan, which may be inflammatory. One study reported possibly this was apple-core like lesion . She has not ever had a colonoscopy in the past. She was having some bleeding. She has no tenderness right now to suggest an acute or severe diverticulitis. It is possible that th is could be diverticular disease, primary neoplasia or even some changes related to edema of the colo n wall with portal hypertension as she seems to show signs of this on CAT scan. Portal hypertension on CAT scan with concern for nodular liver. Her LFTs are normal. It is unclear why she had cirrhosis. PLAN: 1. EGD and colonoscopy tomorrow. 2. Serologic workup.
[2018-01-06] MEDS: Ondansetron ODT 4 MG TAB PO PRN (21:49)
[2018-01-07] MEDS: Morphine 4 MG/ML VIAL SLOW IVP PRN ×2 (01:13→08:55)
[2018-01-07] MEDS: HYDROcodone/Acetaminophen 10/325 mg Tablet PO PRN ×3 (04:39→21:29)
[2018-01-07 05:01] LABS: #Eosinphils 0.1 thou/uL (0.0-0.7); #Lymphocytes 1.5 thou/uL (1.20-3.40); #Monocytes 0.4 thou/uL (0.11-0.59); #Neutrophils 1.5 thou/uL (1.40-6.50); %Eosinophils 2.6 % (0.0-10.0); %Lymphocytes 41.6 % (21.0-51.0); %Monocytes 11.7 % (0.0-10.0); %Neutrophils 44.1 % (42.0-75.0); Hemoglobin 11.8 g/dL (12.0-16.0); Mean Corpuscular HGB CONC 33.7 g/dL (32.0-36.0); Mean Corpuscular Hemoglobin 30.5 pg (27.0-31.0); Mean Corpuscular Volume 90.6 fl (81.0-99.0); Mean Platelet Volume 6.6 fL (7.4-10.4); Platelet Count 152 thou/uL (130-400); RBC Distribution Width 12.6 % (11.5-14.5); Red Blood Cell (RBC) Count 3.87 mill/uL (4.20-5.40); White Blood Cell (WBC) Count 3.5 thou/uL (4.8-10.8)
[2018-01-07 05:02] LABS: INR-International Normal Ratio 1.1; Prothrombin Time 14.1 SEC (12.0-14.7)
[2018-01-07 05:12] LABS: ALT (SGPT) 11 U/L (8-55); AST (SGOT) 16 U/L (5-34); Albumin 3.2 g/dL (3.5-5.0); Alkaline Phosphatase 84 U/L (40-150); Anion Gap 8 mmol/L (10-20); BUN (Urea Nitrogen) 6 mg/dL (9.8-20.1); Bilirubin, Direct 0.2 mg/dL (0.1-0.3); Bilirubin, Total 0.3 mg/dL (0.2-1.2); Calc. Creatinine Clearance 119 mL/min (70-130); Carbon Dioxide 27 mmol/L (22-29); Chloride 106 mmol/L (98-107); Estimated GFR-MDRD Greater than 90; Glucose 109 mg/dL (70-105); Iron 57 ug/dL (50-170); Iron Binding Capacity, Total 249 mcg/dL (265-497); Potassium 3.5 mmol/L (3.5-5.1); Sodium 137 mmol/L (136-145)
[2018-01-07 05:30] LABS: CEA, Serum 1.11 ng/mL (< or = 5.0); Ferritin 198.67 ng/mL (10-291)
[2018-01-07 05:44] LABS: HBCM Index 0.05 S/CO (0-0.79); HBSAg Index 0.26 S/CO (0-0.99); Hep A IgM AB Non-Reactive (NonReactive); Hep A IgM S/CO 0.11 S/CO (0-0.79); Hep B Surf Ag Non-Reactive S/CO (NonReactive); Hep C IgG Ab Non-Reactive (NonReactive); Hep C Index 0.11 S/CO (0-0.79); Hepatitis B Core IGM Abs Non-Reactive (NonReactive)
[2018-01-07] MEDS: metroNIDAZOLE 500 MG in Premix Bag 1 BAG IVPB SCH ×3 (06:08→18:44)
[2018-01-07] MEDS: Pramipexole Di-HCl 0.25 MG TAB PO SCH ×2 (08:57→20:28)
[2018-01-07] MEDS: Lisinopril/Hydrochlorothiazide 10 mg/12.5 mg Tablet PO SCH (08:57)
[2018-01-07] MEDS: Heparin 5,000 UNITS/ML VIAL SC SCH ×6 (08:57→20:28)
[2018-01-07] MEDS: Famotidine 20 MG TAB PO SCH ×2 (08:57→20:28)
[2018-01-07] MEDS: Gabapentin 300 MG CAP PO SCH (08:57)
[2018-01-07] MEDS: metFORMIN 500 MG TAB PO SCH ×2 (08:57→16:30)
[2018-01-07] MEDS: Sodium Chloride 0.9% 1,000 ML IV SCH ×2 (09:05→16:31)
[2018-01-07] MEDS ORDERED: PROPOFOL 200 MG/20 ML VIAL ONE (11:30)
[2018-01-07 12:57] LABS: ANA Symphony (Qualitative) POSITIVE (Negative); ANA Symphony (Quantitative) Greater than 32.00 Ratio (<0.7 Negative); CENP IgG Antibody 1.5 EliAU/mL (<7 Negative); Jo-1 IgG Antibody 0.4 EliAU/mL (<7 Negative); SSB/La IgG Antibody 0.5 EliAU/mL (<7 Negative); Scleroderma-70 IgG Antibody 1.3 EliAU/mL (<7 Negative); Smith D IgG Antibody 2.2 EliAU/mL (<7 Negative); U1RNP IgG Antibody Greater than 240.0 EliAU/mL (<5 Negative); dsDNA IgG Antibody 1.3 IU/mL (<10 Negative)
[2018-01-07] MEDS ORDERED: Morphine 4 MG/ML VIAL ONE (13:44)
[2018-01-07] MEDS ORDERED: Promethazine HCl 25 MG/ML VIAL IM PRN ×2 (15:50)
[2018-01-07] MEDS ORDERED: Ondansetron HCl/PF 4 MG/2 ML Vial IVP PRN ×2 (15:50)
[2018-01-07] MEDS ORDERED: Promethazine HCl 25 MG/ML VIAL SLOW IVP PRN ×2 (15:50)
--- NOTE | 2018-01-07 16:20 | PDOC.PN ---
- Subjective Encounter Start Date: 01/07/18 Encounter Start Time: 16:29 Subjective: Still has abdominal pain but better tday -: No acute overnight events - Objective Resuscitation Status: Resuscitation Status FULL:Full Resuscitation MAR Reviewed: Yes Vital Signs & Weight: Vital Signs (12 hours) Temp Pulse Resp BP BP BP Pulse Ox 01/07/18 11:46 98 F 62 16 144/80 H 98 01/07/18 08:57 67 132/79 01/07/18 08:00 98.2 F 67 16 132/79 132/79 98 Weight Weight 170 lb I&O: 01/06/18 01/07/18 01/08/18 06:59 06:59 06:59 Intake Total 252 831.0 Balance 252 831.0 Result Diagrams: 01/07/18 04:18 01/07/18 04:18 Additional Labs: Accuchecks 01/07/18 01/07/18 01/06/18 11:45 05:33 21:03 POC Glucose 109 113 H 162 H 01/06/18 16:51 POC Glucose 93 Phys Exam - Physical Examination Constitutional: NAD HEENT: PERRLA, moist MMs, sclera anicteric, oral pharynx no lesions Neck: no JVD, supple, full ROM Respiratory: no wheezing, no rales, no rhonchi, clear to auscultation bilateral Cardiovascular: RRR, no significant murmur, no rub Gastrointestinal: soft, no distention, positive bowel sounds diffuse tenderness but no rebound tenderness or guarding Musculoskeletal: no edema, pulses present Neurological: non-focal, moves all 4 limbs Psychiatric: normal affect, A&O x 3 Skin: no rash, normal turgor Dx/Plan (1) Intractable abdominal pain Code(s): R10.9 - UNSPECIFIED ABDOMINAL PAIN Status: Acute Plan: Reports diarrhea and intermittent bloody stools. Unclear etiology. ? diverticular disease, ? neoplasia ? cirrhosis. MRI showed gall bladder thickening - cholelithiasis or pericholecystic fluid. Ct had showed nodular liver. Pain better controlled. Scheduled for EGD and colonoscopy. Comment: (2) HTN (hypertension) Code(s): I10 - ESSENTIAL (PRIMARY) HYPERTENSION Status: Chronic Qualifiers: Hypertension type: essential hypertension Qualified Code(s): I10 - Essential (primary) hypertension Comment: Fairly well controlled. Continue home medications. (3) Diabetes mellitus type 2 in obese Code(s): E11.69 - TYPE 2 DIABETES MELLITUS WITH OTHER SPECIFIED COMPLICATION; E66.9 - OBESITY, UNSPECIFIED Status: Chronic Comment: At goal. (4) Normocytic anemia Code(s): D64.9 - ANEMIA, UNSPECIFIED Status: Chronic - Plan cont current plan of care, continue antibiotics, out of bed/ambulate, DVT proph w/heparin f/u EGD and colonoscopy results. -: Ensure adequate pain control -: Continue Levofloxacin. * . Review of Systems - Medications/Allergies Allergies/Adverse Reactions: Allergies Allergy/AdvReac Type Severity Reaction Status Date / Time codeine Allergy Verified 06/13/17 21:59 Medications: Current Medications Acetaminophen (Tylenol) 650 mg PO Q4H PRN PRN Reason: Headache/Fever or Pain Hydrocodone Bitart/Acetaminophen ([place] 10/325) 1 tab PO Q4H PRN PRN Reason: Severe Pain (7-10) Last Admin: 01/07/18 04:39 Dose: 1 tab Hydrocodone Bitart/Acetaminophen ([place] 5/325) 1 tab PO Q4H PRN PRN Reason: Moderate Pain (4-6) Last Admin: 01/06/18 16:50 Dose: 1 tab Dextrose/Water (Dextrose 50%) 25 gm SLOW IVP PRN PRN PRN Reason: Hypoglycemia Dicyclomine HCl (Bentyl) 10 mg IM QID PRN PRN Reason: GI Cramping Dicyclomine HCl (Bentyl) 10 mg PO QID PRN PRN Reason: GI Cramping Last Admin: 01/06/18 23:57 Dose: 10 mg Famotidine (Pepcid) 20 mg PO BID [facility] Last Admin: 01/07/18 08:57 Dose: 20 mg Fentanyl (Pacu-Sublimaze) 50 mcg SLOW IVP Q10MIN PRN PRN Reason: Moderate to Severe Pain (6-10) Stop: 01/07/18 18:50 Gabapentin (Neurontin) 300 mg PO DAILY [facility] Last Admin: 01/07/18 08:57 Dose: 300 mg Glucagon (Glucagon) 1 mg IM PRN PRN PRN Reason: Hypoglycemia Lisinopril/HCTZ (Prinizide 10-12.5) 1 tab PO DAILY [facility] Last Admin: 01/07/18 08:57 Dose: 1 tab Heparin Sodium (Porcine) (Heparin) 5,000 units SC TID [facility] Last Admin: 01/07/18 15:44 Dose: Not Given Dextrose/Water (D5w) 1,000 mls @ 0 mls/hr IV .Q0M PRN; As Directed PRN Reason: Hypoglycemia Levofloxacin 750 mg/ Device 150 mls @ 100 mls/hr IVPB Q24HR [facility] Last Admin: 01/07/18 01:09 Dose: 150 mls Metronidazole 500 mg/ Device 100 mls @ 100 mls/hr IVPB Q6HR [facility] Last Admin: 01/07/18 12:40 Dose: 100 mls Sodium Chloride (Normal Saline 0.9%) 1,000 mls @ 100 mls/hr IV .Q10H [facility] Last Admin: 01/07/18 09:05 Dose: 1,000 mls Insulin Human Lispro (Humalog) 0 units SC .MILD SLIDING SCALE PRN PRN Reason: Mild Correctional Scale Metformin HCl (Glucophage) 500 mg PO BID-[facility] Last Admin: 01/07/18 08:57 Dose: 500 mg Methocarbamol (Robaxin) 750 mg PO Q4H PRN PRN Reason: Pain Morphine Sulfate (Morphine) 2 mg SLOW IVP Q4H PRN PRN Reason: Breakthrough Pain Last Admin: 01/07/18 08:55 Dose: 2 mg Ondansetron HCl (Zofran Odt) 4 mg PO Q6H PRN PRN Reason: Nausea/Vomiting Last Admin: 01/06/18 21:49 Dose: 4 mg Ondansetron HCl (Zofran) 4 mg IVP Q6H PRN PRN Reason: Nausea/Vomiting Ondansetron HCl (Pacu-Zofran) 4 mg IVP ONE PRN PRN Reason: Nausea/Vomiting Stop: 01/07/18 18:50 Pramipexole Dihydrochloride (Mirapex) 0.5 mg PO BID [facility] Last Admin: 01/07/18 08:57 Dose: 0.5 mg Promethazine HCl (Pacu-Phenergan) 6.25 mg SLOW IVP ONE PRN PRN Reason: Nausea/Vomiting Stop: 01/07/18 18:50 Promethazine HCl (Pacu-Phenergan) 6.25 mg IM ONE PRN PRN Reason: Nausea/Vomiting Stop: 01/07/18 18:50 Sodium Chloride (Flush - Normal Saline) 10 ml IVF PRN PRN PRN Reason: Saline Flush Last Admin: 01/07/18 08:58 Dose: 10 ml
--- NOTE | 2018-01-07 18:12 | OP ---
DATE OF PROCEDURE: 01/07/2018 PROCEDURES: EGD (diagnostic), colonoscopy with biopsy, polypectomy and submucosal injection. INDICATION FOR PROCEDURE: Abnormal GI imaging, possible cirrhosis on imaging, and hematochezia. DESCRIPTION OF PROCEDURE: After the risks and benefits of the procedures were explained to the patie nt including risks of bleeding, infection, perforation, reaction to anesthesia and/or pain, informed consent was obtained. The patient was then taken to the endoscopy suite where deep sedation was admi nistered via propofol and anesthesia support. The standard gastroscope was then introduced into the mouth with intubation of the esophagus, stomach and proximal small intestines with the findings liste d below. Patient tolerated that particular procedure well with no immediate perioperative complicati ons. After completion of the EGD, the patient was then rotated 180 degrees with start of the colonos copy. The standard colonoscope was introduced in the rectum after an external examination and advanc ed to approximately 40 cm past the anal verge, at which point, a high grade stricture was encountered that was not amenable to passage by the colonoscope at least initially. After biopsies were taken, the standard colonoscope was exchanged for the standard gastroscope. With the gastroscope then advan melisa past the upper esophageal stricture and into the cecum with the findings listed below. The quali ty of the prep was fair to good with a large amount of solid stool or liquid stool seen within the ri ght colon that was amenable to aggressive irrigation and suctioning. The patient tolerated this proc edure well with no immediate perioperative complications. UPPER ENDOSCOPY FINDINGS: ESOPHAGUS: Normal-appearing mucosa was seen in the proximal, mid and distal esophagus, there was no evidence of erosions, ulcerations, mass lesions or esophageal varices. STOMACH: Normal-appearing mucosa was seen in the cardia, body, fundus, antrum and incisura. There w as no evidence of erosions, ulcerations, mass lesions, gastric varices or portal hypertensive gastrop athy. DUODENUM: Normal-appearing mucosa was seen in both the duodenal bulb and second portion of the duode num. There was no evidence of erosions, ulcerations, or mass lesions. IMPRESSION: 1. Normal upper endoscopy. 2. No evidence to suggest portal hypertension including absence of gastric and esophageal varices. RECOMMENDATIONS: Proceed to colonoscopy. COLONOSCOPY FINDINGS Digital rectal examination, small external hemorrhoids were noted on external examination. FINDINGS: The normal appearing mucosa was seen at the ileocecal valve, cecum and appendiceal orifice . Normal-appearing mucosa was also seen in the ascending colon. However, 2 polyps measuring approxi mately 5-6 mm in size were seen in the proximal transverse colon and completely removed with hot snar e polypectomy. Both specimens were retrieved and placed in a specimen jar for evaluation. Multiple colonic polyps were seen in the distal transverse colon with an inflammatory type appearance starting at approximately 50 cm past the anal verge. A lead generation representative sample of these polyps were removed wi th hot snare polypectomy and placed in a specimen jar for evaluation. Along with these inflammatory appearing polyps, there was a loss of mucosal vascularity as well as mild granularity to the tissue f rom 50 to approximately 43 cm. At 43 cm, a high grade colonic stricture was encountered measuring ap proximately 6 cm in length that was traversed with some difficulty with the standard gastroscope. Mu ltiple biopsies were taken within the stricture itself for evaluation. Tattoo placement was then per formed on both the proximal and distal end of the colonic stricture for future evaluation. The remai nder of the colon in the sigmoid, the distal descending and sigmoid colon had loss of vascularity and mild granularity to the tissue, but no additional polyps or increased mucosal erythema. A 1.5 cm po lyp was encountered in the rectum and completely removed with hot snare polypectomy. It was retrieve d and placed in a specimen jar for evaluation. Otherwise, normal appearing mucosa was also seen in t he rectum. On rectal retroflexion, there were small hypertrophied anal papillae. IMPRESSION: 1. Two transverse colon polyps measuring approximately 5-6 mm in size, status post hot snare polypec david. 2. Multiple colonic polyps seen in the distal transverse colon and removed with hot snare polypectom y. 3. High grade colonic stricture was seen at 37-43 cm past the anal verge, status post biopsies for e valuation. There is a high index of suspicion for possible colonic neoplasm and/or IBD. This coloni c stricture was marked for future reference with tattoos placed at both the proximal and distal end o f the stricture. 4. A 1.5 cm rectal polyp, status post hot snare polypectomy. 5. Hypertrophied anal papillae. RECOMMENDATIONS: 1. Follow up with primary inpatient team. 2. We will follow up on biopsy results which would further guide therapy. 3. Continue to monitor for signs of GI bleeding with the most likely source of her recent hematochez ia being this high grade colonic strictures and/or polyps. 4. We would consider consultation of General Surgery service for evaluation and possible resection o f the colonic polyp, depending on pathology results. 5. We will continue to follow. Please call with any questions.
[2018-01-07] MEDS: Ondansetron ODT 4 MG TAB PO PRN (21:41)
[2018-01-08] MEDS: metroNIDAZOLE 500 MG in Premix Bag 1 BAG IVPB SCH ×3 (00:08→11:20)
[2018-01-08] MEDS: Dicyclomine 10 MG CAP PO PRN (00:08)
[2018-01-08] MEDS: Morphine 4 MG/ML VIAL SLOW IVP PRN ×3 (01:50→11:20)
[2018-01-08] MEDS: Sodium Chloride 0.9% 1,000 ML IV SCH ×2 (04:19→14:56)
[2018-01-08] MEDS: Ondansetron ODT 4 MG TAB PO PRN (04:58)
[2018-01-08 05:47] LABS: #Eosinphils 0.1 thou/uL (0.0-0.7); #Lymphocytes 1.7 thou/uL (1.20-3.40); #Monocytes 0.3 thou/uL (0.11-0.59); #Neutrophils 1.8 thou/uL (1.40-6.50); %Basophils 0.2 % (0.0-1.0); %Eosinophils 3.4 % (0.0-10.0); %Lymphocytes 42.8 % (21.0-51.0); %Monocytes 8.6 % (0.0-10.0); Hemoglobin 11.2 g/dL (12.0-16.0); Mean Corpuscular HGB CONC 34.3 g/dL (32.0-36.0); Mean Corpuscular Volume 90.5 fl (81.0-99.0); Mean Platelet Volume 6.6 fL (7.4-10.4); Platelet Count 155 thou/uL (130-400); RBC Distribution Width 12.6 % (11.5-14.5); Red Blood Cell (RBC) Count 3.63 mill/uL (4.20-5.40); White Blood Cell (WBC) Count 3.9 thou/uL (4.8-10.8)
[2018-01-08 06:01] LABS: Anion Gap 5 mmol/L (10-20); BUN (Urea Nitrogen) 5 mg/dL (9.8-20.1); Calc. Creatinine Clearance 123 mL/min (70-130); Calcium 9.5 mg/dL (7.8-10.44); Carbon Dioxide 30 mmol/L (22-29); Chloride 104 mmol/L (98-107); Estimated GFR-MDRD Greater than 90; Glucose 92 mg/dL (70-105); Potassium 3.3 mmol/L (3.5-5.1); Sodium 136 mmol/L (136-145)
[2018-01-08] MEDS: Lisinopril/Hydrochlorothiazide 10 mg/12.5 mg Tablet PO SCH (08:37)
[2018-01-08] MEDS: metFORMIN 500 MG TAB PO SCH (08:37)
[2018-01-08] MEDS: Famotidine 20 MG TAB PO SCH (08:37)
[2018-01-08] MEDS: Gabapentin 300 MG CAP PO SCH (08:37)
[2018-01-08] MEDS: Pramipexole Di-HCl 0.25 MG TAB PO SCH (08:37)
[2018-01-08] MEDS: Heparin 5,000 UNITS/ML VIAL SC SCH ×2 (08:38)
--- NOTE | 2018-01-08 11:30 | PRG ---
DATE OF SERVICE: 01/08/2018 HISTORY OF PRESENT ILLNESS: Ms. Nguyen is hospital day #4 following admission for abdominal bloatin g and discomfort and a question of possible diverticulitis. Yesterday she underwent upper and lower endoscopy per Dr. Mohr. She continues to complain of some abdominal bloating and discomfort. She notes that she has diarrhea again. This is not unusual since she has only been on clear liquids sin e her colonoscopy yesterday. During the colonoscopy, she was recognized to have a colon stricture at about 40 cm from anal verge a nd this was tattooed. This was biopsied and pathology is pending regarding this. The patient is riccardo erating her liquid diet uneventfully. PHYSICAL EXAMINATION: VITAL SIGNS: She is afebrile, pulse is in the 60s, blood pressure is 165/91. ABDOMEN: Her abdomen is soft with normal bowel sounds. She complains of discomfort with examination diffusely. LABORATORY STUDIES: Reveal an essentially normal CBC with a white blood cell count of 3.9 and a norm al differential, hemoglobin 11.2. Her basic metabolic panel shows minor electrolyte abnormalities, b ut no significant concerns. It was noted that her CEA that was drawn yesterday is normal at 1. ASSESSMENT: Patient with a colon stricture near the splenic flexure. In some fashion this may be re sponsible for her diffuse abdominal symptoms of bloating and diarrhea. Pathology is pending. Manage ment of this would differ depending on whether this is an ischemic process or malignant. Since she i s entirely stable hemodynamically and with normal laboratory studies, I feel she is safe to be discha rged home and have this followed as an outpatient. I have already given her my card and would be hap py to see her next week. If this is a nonmalignant stricture, then a trial of conservative measures could be attempted, but if she continues to have a symptomatic stricture then she would likely need a resection whether this is malignant or not. If she is discharged today then I would like to see her back in my office next week. I will communicate with Dr. Mohr regarding this as well.
[2018-01-08 13:37] VITALS: BP 168/81; TEMP 98.1
--- NOTE | 2018-01-09 00:49 | DIS ---
DATE OF ADMISSION: 01/05/2018 DATE OF DISCHARGE: 01/08/2018 DISCHARGE DIAGNOSES: 1. Intractable abdominal pain, improved. 2. 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 3. Nausea and vomiting, improved. 4. Diabetes mellitus, type 2, stable. 5. Hypertension, stable. 6. Chronic normocytic anemia. CONSULTATIONS: Dr. Peres and Dr. Mohr with GI service. Dr. Figueroa with General Surgery Service. PERTINENT LABORATORY AND X-RAY FINDINGS: Potassium ranging between 3.3-3.8. Hemoglobin A1c 8.5. Se rum iron level 57, TIBC 249, ferritin 199. AFP 3.9. CEA 1.11. CBC showed a hemoglobin of 11, hemat ocrit 33. MANA screen positive. MANA IgG screen positive. Hepatitis A, B, and C negative on 01/08/20 18. Abdominal ultrasound dated 01/05/2018 showed moderate to prominent distention of the gallbladder without evidence of intraluminal stones. No evidence of acute cholecystitis. Prominence of the com mon bile duct. Cirrhotic morphology of the liver. Abdominal MRI dated 01/06/2018 showed dilated gal lbladder without wall thickening, cholelithiasis, or pericholecystic fluid. Nodular hepatic contour with splenomegaly and early portal hypertension. EGD/colonoscopy dated 01/07/2018 showed normal uppe r endoscopy. Colonoscopy showed transverse colon polyposis. High-grade colonic stricture at 37-43 c m past the anal verge with high index of suspicion for malignancy. Biopsies pending. HOSPITAL COURSE: The patient was admitted after initially presenting with intractable abdominal pain with associated nausea and vomiting and abdominal bloating. The patient underwent extensive evaluat ion by the GI Service including multiple abdominal imaging modalities with initial attention in the r ight upper quadrant and biliary system. The patient with distended gallbladder without evidence of o bstructive process or cholecystitis. The patient underwent EGD and colonoscopy exam after suspicion for stricture in the transverse colon. The patient was noted with severe stricture in the transverse colon as stated previously with biopsies performed during the exam. High index of suspicion for mal ignant process given endoscopy findings. The patient was given clear liquids, advancing to soft diet , tolerating appropriately. The patient received IV and oral pain medications during the hospital co urse as well as antiemetics. The patient overall remained clinically stable. The patient was evalua alton by the General Surgery Service with recommendations for outpatient followup and management pendin g biopsy results of the colon. I have examined the patient at the time of discharge and discussed la boratory, x-ray findings, and followup instructions. The patient verbalizes understanding and agreem ent and will discharge home on 01/08/2018. DISCHARGE MEDICATIONS: 1. Neurontin 300 mg 1 tab p.o. daily. 2. Lisinopril/hydrochlorothiazide 10/12.5 mg 1 tab p.o. daily. 3. Metformin 500 mg p.o. b.i.d. 4. Robaxin 750 mg p.o. q.4 hours p.r.n. 5. Zofran ODT 4 mg p.o. q.6 hour p.r.n. nausea. 6. Mirapex 0.5 mg p.o. b.i.d. 7. Tramadol 50 mg p.o. q.i.d. p.r.n. pain, #40 given. FOLLOWUP: The patient will follow up with her primary care provider, Dr. Mayda San, within 7 d ays of discharge. The patient will follow up with Dr. Figueroa with General Surgery Service within 1 week of discharge. CONDITION ON DISCHARGE: Stable. ACTIVITY: Ad-valerie. DIET: Regular. CODE STATUS: FULL. DISPOSITION: Home on 01/08/2018.
--- NOTE | 2018-01-09 07:34 | PRG ---
EDATE OF SERVICE: 01/08/2018 SUBJECTIVE: Ms. Nguyen had endoscopies yesterday and she is apparently going home today. OBJECTIVE: VITAL SIGNS: Temperature 98.1, pulse 64, blood pressure 168/81. ABDOMEN: Nontender. LABORATORY STUDIES: White count of 3.9, hemoglobin 11.3, and platelet count 155. AFP was 3.9. Hepa titis A, B, and C serologies negative. MANA was positive. Smooth muscle antibody, AMA, ceruloplasmin also pending, alpha-1 antitrypsin pending. ASSESSMENT: 1. Colonoscopy revealed an area of ileal narrowing in the sigmoid colon, likely resolving ischemic c olitis. Biopsies are pending. Also some polyps removed and those results are pending. She has been deemed ready to go home and will follow up as an outpatient. 2. Possible cirrhotic liver. Serologic workup pending. She has no signs of decompensation, would r ecommend to avoid all alcohol and I have asked her to follow up with me in office 3 weeks to go over results as well.
[2018-01-11 10:09] LABS: Smooth Muscle Total ABS 19 Units (0-19)
[2018-01-11 11:09] LABS: Mitochondrial (M2) Antibody SO 4.9 Units (0.0-20.0)
[2018-01-12 11:17] LABS: Alpha-1-Antitrypsin 169 mg/dL (90-200)
== END 2018-01-08 14:59 | disposition home or self-care (01) ==
LOC: ERS 18:46 → T4-B 21:33
PROVIDERS: ADMIT Internal Medicine Infectious Disease; ATTEND Internal Medicine Infectious Disease
PROC: 0DBP8ZX Excision of Rectum, Via Natural or Artificial Opening Endoscopic, Diagnostic (ICD-10-PCS; principal; 2018-01-08)
PROC: 0DBL8ZX Excision of Transverse Colon, Via Natural or Artificial Opening Endoscopic, Diagnostic (ICD-10-PCS; 2018-01-08)
PROC: 0DJ08ZZ Inspection of Upper Intestinal Tract, Via Natural or Artificial Opening Endoscopic (ICD-10-PCS; 2018-01-08)
PROC: 3E0H8GC Introduction of Other Therapeutic Substance into Lower GI, Via Natural or Artificial Opening Endoscopic (ICD-10-PCS; 2018-01-08)
DX: D12.7 Benign neoplasm of rectosigmoid junction (principal); D12.3 Benign neoplasm of transverse colon; K57.32 Diverticulitis of large intestine without perforation or abscess without bleeding; K56.699 Other intestinal obstruction unspecified as to partial versus complete obstruction; K64.4 Residual hemorrhoidal skin tags; K62.89 Other specified diseases of anus and rectum; I11.0 Hypertensive heart disease with heart failure; I50.9 Heart failure, unspecified; E11.9 Type 2 diabetes mellitus without complications; G25.81 Restless legs syndrome; E66.9 Obesity, unspecified; F17.210 Nicotine dependence, cigarettes, uncomplicated; D64.9 Anemia, unspecified; Z68.30 Body mass index [BMI] 30.0-30.9, adult; Z79.2 Long term (current) use of antibiotics; Z79.84 Long term (current) use of oral hypoglycemic drugs; Z79.899 Other long term (current) drug therapy; Z88.5 Allergy status to narcotic agent; Z90.710 Acquired absence of both cervix and uterus; Z98.890 Other specified postprocedural states
CPT/HCPCS: 36415; 36416; 74181; 76705; 80048; 80053; 80074; 80076; 82103; 82104; 82105; 82378; 82390; 82728; 83036; 83516; 83540; 83550; 83735; 85025; 85610; 86038; 86225; 86235; 88305; 96361; 96365; 96366; 96367; 96374; 96375; 96376; 99406; G0378; J1644; J1956; J2270; J2704; J3010; Q0162

== ENCOUNTER 2018-01-27 07:36 | Outpatient (CLI) | payer OTHER ==
--- NOTE | 2018-01-27 12:34 | NM ---
HEPATOBILIARY SCAN: Comparison: MRI abdomen, 01-06-18 History: Generalized abdominal pain. Technique: A hepatobiliary scan was performed after administration of 5.1 mCi Technetium 99M Mebrofen in. FINDINGS: Prompt uptake of radiopharmaceutical by the liver is seen. No photopenic liver lesions are seen. Bili lino and gallbladder activity was seen within 15 minutes. Bowel activity is seen within one hour. The gallbladder ejection fraction was estimated after administration of 8 ounces of Ensure PO. This w as estimated at 77%. IMPRESSION: Normal hepatobiliary scan. POS: [facility]
== END 2018-01-27 07:37 | disposition home or self-care (01) ==
LOC: NM 07:36
PROVIDERS: ATTEND Specialist
DX: R10.84 Generalized abdominal pain (principal)
CPT/HCPCS: 78227; A9537

== ENCOUNTER 2018-03-23 10:14 | Day surgery (SDC) | payer OTHER ==
[2018-03-23] MEDS ORDERED: PROPOFOL 200 MG/20 ML VIAL ONE (14:43)
[2018-03-23] MEDS ORDERED: Lidocaine 1% PF 5 ML VIAL ONE (14:43)
--- NOTE | 2018-03-24 08:05 | OP ---
DATE OF PROCEDURE: 03/23/2018 PROCEDURES: Colonoscopy with biopsy. PREPROCEDURE DIAGNOSES: History of colonic stricture of unknown etiology noted on colonoscopy on , patient was hospitalized with severe abdominal pain and this was felt probably to be ischemi c, although some biopsy showed adenomatous change in the area of the biopsies, also has a 1 cm polyp removed from the rectum at that point in time. POSTPROCEDURE DIAGNOSES: 1. Prominent rectal veins, mild. 2. Stricture at about 40 centimeters in the esophageal seems to be from the anorectal verge about 37 -42 cm. A tattoo was noted the distal to the stricture. It was biopsied aggressively. 3. There is a ridge of scar tissue on the antimesenteric border proximal disrupt about the spl enic flexure about 50-60 cm. The mucosa on one wall of the bowel which was felt to possibly antimese nteric border of the bowel, was more atrophic and without as much vascularity or regular fold. Multi ple biopsies were obtained. I suspect this is probably the chronic sequelae of ischemia, which is he aling. 4. The terminal ileum was normal. 5. Right colon and transverse colon appeared normal. RECOMMENDATIONS: 1. Await histopathology. 2. Continue present medication. 3. Avoid laxatives. 4. Stay well hydrated. We will use stool softener. 5. Await biopsies. 6. Follow up in the office in 2 weeks. ANESTHESIA: TIVA. PROCEDURE IN DETAIL: After the patient was informed of the risks, benefits, possible complications o f endoscopy including perforation, bleeding, reactions to medication and aspiration, informed consent was obtained. The patient brought to endoscopy suite where she was sedated in gradual fashion. Onc e she was comfortable, rectal exam was performed, which revealed no abnormalities. The endoscope was advanced through the anal canal through the colon and cecum which was identified by the ileocecal va lve and appendiceal orifice. A 40 cm from the anorectal verge, a stricture was encountered which was tight. The scope could not be used to pass this and the EGD scope was used to go beyond this easily . We were able to reach the cecum, the terminal ileum which were normal. The scope was then slowly removed. There was good visualization of mucosa in the ascending and transverse colon. No abnormali ties noted. Around the area of the splenic flexure, there seemed to be loss of vascular pattern and chronic scar-like changes on the antimesenteric border of the colon wall. Biopsies were taken in thi s area and submitted specimen B. There was also multiple biopsies taken the specimen A. There is a stricture, which was demarcated by a tattoo, which was seen distal to the stricture, I did not see a tattoo proximal to it, proximal as well on the colonoscopy on 01/05/2018. Remainder of the col on was normal except for some slight prominent rectal veins. There were no overt varices. There is no evidence of scars or residual polyps in the rectum. The scope was returned to forward position an d removed. The patient tolerated the procedure without any complications.
== END 2018-03-23 13:53 | disposition home or self-care (01) ==
LOC: SDC 10:14
PROVIDERS: ATTEND Internal Medicine Gastroenterology
PROC: 0DBM8ZX Excision of Descending Colon, Via Natural or Artificial Opening Endoscopic, Diagnostic (ICD-10-PCS; principal; 2018-03-23)
PROC: 0DBL8ZX Excision of Transverse Colon, Via Natural or Artificial Opening Endoscopic, Diagnostic (ICD-10-PCS; principal; 2018-03-23)
DX: K51.412 Inflammatory polyps of colon with intestinal obstruction (principal); E78.00 Pure hypercholesterolemia, unspecified; I11.0 Hypertensive heart disease with heart failure; I50.9 Heart failure, unspecified; E11.9 Type 2 diabetes mellitus without complications; M19.90 Unspecified osteoarthritis, unspecified site; F41.9 Anxiety disorder, unspecified; F17.210 Nicotine dependence, cigarettes, uncomplicated; F12.11 Cannabis abuse, in remission; Z88.5 Allergy status to narcotic agent; Z79.84 Long term (current) use of oral hypoglycemic drugs; Z79.899 Other long term (current) drug therapy
CPT/HCPCS: 88305; J2001; J2704

== ENCOUNTER 2018-04-06 11:48 | Outpatient (CLI) | payer OTHER | END 2018-04-06 11:49 | disposition home or self-care (01) | LOC: BICRAD 11:48 | PROVIDERS: ATTEND Internal Medicine Gastroenterology | DX: K56.699 Other intestinal obstruction unspecified as to partial versus complete obstruction (principal); R10.10 Upper abdominal pain, unspecified; K59.00 Constipation, unspecified; R14.0 Abdominal distension (gaseous) | CPT/HCPCS: 74022 ==